=== PATIENT | female | born 1965 | race Caucasian/White ===

== ENCOUNTER 2019-03-28 06:30 | Day surgery (SDC) | payer OTHER ==
[2019-03-25 12:51] VITALS: BMI 23.6
--- NOTE | 2019-03-27 22:18 | HP ---
HISTORY OF PRESENT ILLNESS: Ms. Forman is a very pleasant 54-year-old woman known to us for previous assessment of neck and low back pain as well as distant lumbar laminectomy. She returns now with a very convincing right upper extremity C6 pains that she has had for many years, but over the last few months became more progressive. She drops things from [id number]. She started to have symptoms that affect the left upper extremity as well in the same distribution. She has had every conceivable conservative intervention other than epidural steroid injections, although is not particularly interested in pursuing those. MRI on disk from [place] reveals severe foraminal stenosis to the right and to the left at C5-6 secondary to the facet arthropathy. She has reached a point where she would like to pursue surgery if possible. PAST MEDICAL HISTORY: Significant for thyroid disease. PAST SURGICAL HISTORY: Tonsillectomy, adenoidectomy, left ankle fixation, hysterectomy, oophorectomy, laparoscopic lysis of adhesions x3, lumbar hemilaminectomy, cholecystectomy. CURRENT MEDICATIONS: 1. Synthroid. 2. Climara. 3. Vitamin D. 4. Ibuprofen. ALLERGIES: TO AUGMENTIN. PHYSICAL EXAMINATION: GENERAL: The patient is alert and oriented x3. Gait is normal. No ataxia. EXTREMITIES: Upper extremity motor exam reveals normal bilateral upper extremities. ASSESSMENT: Cervical radiculopathy. PLAN: Dr. Garcia met with the patient, who reviewed her imaging and advocated for C5-6 ACDF. He explained to the patient the risks, benefits, and alternatives to the procedure. The patient expressed understanding and elected to move forward with surgery as discussed. I do believe the patient is mentally competent capable of making medical decisions for herself. We will move forward with surgery as planned. Job ID: [id number]
[2019-03-28] MEDS ORDERED: Clindamycin/D5W 900 mg/50 ml Premix Bag ONE (08:20)
[2019-03-28] MEDS ORDERED: Levofloxacin 500 mg/D5W 100 ml Premix Bag ONE (08:20)
[2019-03-28] MEDS ORDERED: Midazolam HCl 2 mg/2 ml Vial ONE ×3 (08:24→11:12)
[2019-03-28] MEDS ORDERED: Thrombin 5000 UNITS/5 ML VIAL ONE (08:29)
[2019-03-28] MEDS ORDERED: Fentanyl 250 MCG/5 ML VIAL ONE (08:39)
--- NOTE | 2019-03-28 10:18 | OP ---
DATE OF PROCEDURE: 03/28/2019 DIE GRINDER: Christian Becerra PA-C. INDICATION: Pain. DIAGNOSIS: Cervical radiculopathy. PROCEDURE PERFORMED: Anterior cervical diskectomy and fusion, C5-C6. ANESTHESIA: General. DESCRIPTION OF PROCEDURE: The patient was brought into the operating room and placed under general anesthesia. She was placed on table in supine position. A transverse incision was planned over the lateral aspect of the neck on the right. After prepping and draping and after an appropriate preoperative pause, the incision was created. The underlying platysma muscle was identified and incised. A blunt tissue plane anterior to the sternocleidomastoid muscle was used to gain access to the prevertebral space. After confirming the appropriate level with C-arm fluoroscopy, self-retaining retractors were placed. An annulotomy was performed in the C5-C6 disk space. All disk material as well as anterior and posterior osteophytes were removed until the disk space was decompressed. A 6-mm lordotic PEEK cage packed with allograft and autograft material was placed within the interbody space. An anterior cervical plate was then fashioned to the front of spine and secured with a total of 4 fixed screws. Midline and lateral structures were inspected and found to be free from significant trauma. The wound was irrigated. Hemostasis was maintained throughout. The wound was then closed in anatomic layers and a pressure dressing was applied. There were no known procedural complications. Job ID: [id number]
[2019-03-28] MEDS ORDERED: Ketorolac Tromethamine 30 MG/ML VIAL ONE (10:19)
[2019-03-28] MEDS ORDERED: Cyclobenzaprine 10 MG TAB ONE (10:24)
[2019-03-28] MEDS ORDERED: Fentanyl 100 MCG/2 ML VIAL ONE (10:41)
== END 2019-03-28 13:45 | disposition home or self-care (01) ==
LOC: SDC 06:30
PROVIDERS: ATTEND Neurological Surgery
PROC: XNS New Technology, Bones, Reposition (ICD-10-PCS; principal; 2019-03-28)
PROC: 0RG1071 Fusion of Cervical Vertebral Joint with Autologous Tissue Substitute, Posterior Approach, Posterior Column, Open Approach (ICD-10-PCS; principal; 2019-03-28)
DX: M54.12 Radiculopathy, cervical region (principal); M12.88 Other specific arthropathies, not elsewhere classified, other specified site; M25.78 Osteophyte, vertebrae; E07.9 Disorder of thyroid, unspecified; Z79.899 Other long term (current) drug therapy; Z88.1 Allergy status to other antibiotic agents; Z98.890 Other specified postprocedural states
CPT/HCPCS: 76000; C1713; C1776; J0131; J1885; J1956; J2250; J3010; J3490